=== PATIENT | female | born 1935 | race African-American/Black ===

== ENCOUNTER 2018-05-07 09:03 | Observation (INO) | payer BC ==
[~2018-05-07 09:03] MED LIST: LIDOCAINE 1% PF 2 ML VIAL. ID; MORPHINE SULFATE 2 MG/ML DISP.SYRIN. IV; ONDANSETRON PF 4 MG/2 ML VIAL. IV; PROCHLORPERAZINE 10 MG/2 ML VIAL. IV; fentaNYL PF VIAL 100 MCG/2 ML VIAL IV
[2018-05-07] MEDS ORDERED: LIDOCAINE 2% PF Vial for OR 5 ML VIAL. (09:27)
[2018-05-07] MEDS ORDERED: ROCURONIUM 50 MG/5 ML VIAL. (09:27)
[2018-05-07] MEDS ORDERED: PROPOFOL 20 ML IV (09:27)
[2018-05-07] MEDS ORDERED: ONDANSETRON PF 4 MG/2 ML VIAL. (09:27)
[2018-05-07] MEDS ORDERED: fentaNYL PF VIAL 100 MCG/2 ML VIAL (09:27)
[2018-05-07] MEDS ORDERED: DEXAMETHASONE SOD PHOS 20 MG/5 ML VIAL. (09:27)
[2018-05-07] MEDS: IV RINGERS,LACTATED 1000ML 1,000 ML IV (09:51)
[2018-05-07] MEDS ORDERED: GLYCOPYRROLATE 1 MG/5 ML VIAL. (10:49)
[2018-05-07] MEDS ORDERED: NEOSTIGMINE METHYLSULFATE 5 MG/5 ML SYRINGE. (10:49)
[2018-05-07] MEDS ORDERED: PHENYLEPHRINE in 0.9% NACL PF 1 MG/10 ML SYRINGE. IV (10:58)
[2018-05-07] MEDS ORDERED: ePHEDrine PF IN SALINE 50 MG/5 ML DISP.SYRIN IV (11:31)
[2018-05-07] MEDS ORDERED: SEVOFLURANE 61 TO 120 MINUTES. IH (11:56)
[2018-05-07] MEDS ORDERED: ceFAZolin 2GM PREMIX 2 GM/50 ML BAG IV (12:00)
[2018-05-07] MEDS ORDERED: fentaNYL PF VIAL 100 MCG/2 ML VIAL IV ×2 (12:15→12:30)
[2018-05-07] MEDS ORDERED: 0.9 % SODIUM CHLORIDE 10 ML DISP.SYRIN. IV (12:15)
[2018-05-07] MEDS ORDERED: HYDROcodone/APAP 5/325MG 1 TAB TABLET PO ×2 (12:15)
[2018-05-07] MEDS ORDERED: ONDANSETRON PF 4 MG/2 ML VIAL. IV (12:15)
[2018-05-07] MEDS: fentaNYL PF VIAL 100 MCG/2 ML VIAL IV ×2 (12:47→13:05)
[2018-05-07] MEDS: IV 1/2 NORMAL SALINE 1,000 ML IV (13:50)
[2018-05-07] MEDS: ENOXAPARIN 40 MG/0.4 ML SYRINGE. SQ (21:00)
[2018-05-08] MEDS: IV 1/2 NORMAL SALINE 1,000 ML IV (02:25)
[2018-05-08 05:31] LABS: ANION GAP 7 (6-14); BLOOD UREA NITROGEN 12 mg/dL (7-20); CALCIUM 9.4 mg/dL (8.5-10.1); CARBON DIOXIDE 26 mmol/L (21-32); CHLORIDE 100 mmol/L (98-107); CREATININE 1.1 mg/dL (0.6-1.0); GFR 57.3; GLUCOSE 103 mg/dL (70-99); SODIUM 133 mmol/L (136-145)
== END 2018-05-08 13:00 | disposition home or self-care (01) ==
LOC: SURG 09:03 → 4 NORTH 12:10
DX: K43.2 Incisional hernia without obstruction or gangrene (principal); M06.9 Rheumatoid arthritis, unspecified; I10 Essential (primary) hypertension; E55.9 Vitamin D deficiency, unspecified
CPT/HCPCS: 36415; 80048; A7015; C1781; G0378; G0379; J0690; J1100; J1650; J2370; J2405; J2704; J2710; J3010; J3490; J7120

== ENCOUNTER → 2020-02-11 | Outpatient (CLI) | payer BC ==
[2018-05-08 11:00] VITALS: BP 143/74
[~2020-02-11] MED LIST changes: +CETI10TA24 PO; +HYDR-2761 PO; -LIDOCAINE 1% PF 2 ML VIAL. ID; -MORPHINE SULFATE 2 MG/ML DISP.SYRIN. IV; -ONDANSETRON PF 4 MG/2 ML VIAL. IV; +PERCOGESIC PO; -PROCHLORPERAZINE 10 MG/2 ML VIAL. IV; -fentaNYL PF VIAL 100 MCG/2 ML VIAL IV
--- NOTE | 2020-02-11 14:06 | KCIC ---
INDICATION: Right leg edema COMPARISON: None. TECHNIQUE: Grayscale, color and doppler ultrasound images were obtained of the right lower extremity venous vasculature. RIGHT: No thrombus identified in the common femoral vein, femoral vein, popliteal vein or visualized calf veins. IMPRESSION: * No thrombus identified in deep venous system of right lower extremity. Electronically signed by: Dre Taylor MD (02/11/2020 2:03 PM) [id number]
== END | disposition home or self-care (01) ==
LOC: KCIC US 13:19
PROVIDERS: ATTEND Family Medicine
DX: R60.0 Localized edema (principal)
CPT/HCPCS: 93971

== ENCOUNTER → 2020-11-18 | Outpatient (CLI) | payer BC ==
[2020-03-31 15:00] VITALS: BP 138/71
[~2020-11-18] MED LIST changes: +AMOX1TAB61 PO; +ASCO500T4 PO; -CETI10TA24 PO; +CETI10TA74 PO; +CHOL500051 PO; +ZINC220C2 PO; +[UNRECOGNIZED DRUG - REMARK]
[2020-11-18 14:48] LABS: BASO % 1 % (0-3); EOS # 0.1 x10^3/uL (0.0-0.7); EOS % 5 % (0-3); HEMATOCRIT 32.1 % (36.0-47.0); HEMOGLOBIN 10.6 g/dL (12.0-15.5); LYMPH # 0.7 x10^3/uL (1.0-4.8); LYMPH % 33 % (24-48); MEAN CORPUSCULAR HEMOGLOBIN 29 pg (25-35); MEAN CORPUSCULAR HGB CONC 33 g/dL (31-37); MEAN CORPUSCULAR VOLUME 88 fL (79-100); MONO # 0.2 x10^3/uL (0.0-1.1); MONO % 11 % (0-9); NEUT % 51 % (31-73); PLATELET COUNT 147 x10^3/uL (140-400); RED BLOOD COUNT 3.63 x10^6/uL (3.50-5.40)
[2020-11-19 16:11] LABS: KAPPA FREE 112.1 mg/L (3.3-19.4); KAPPA LAMBDA RATIO 1.64 (0.26-1.65); LAMBDA FREE 68.5 mg/L (5.7-26.3)
[2020-11-19 18:13] LABS: COMMENT IMMUNOFIX SERUM Note: (.); IMMUNOGLOBULIN A 539 mg/dL (64-422); IMMUNOGLOBULIN G 3420 mg/dL (586-1602); IMMUNOGLOBULIN M 52 mg/dL (26-217)
[2020-11-19 19:12] LABS: ALBUM 3.5 g/dL (2.9-4.4); ALPHA 1 0.2 g/dL (0.0-0.4); ALPHA 2 0.5 g/dL (0.4-1.0); GAMMA 3.1 g/dL (0.4-1.8); PROTEIN TOTAL 8.3 g/dL (6.0-8.5); SPEP AG RATIO 0.7 (0.7-1.7)
== END ==
LOC: ONCLAB 13:44
PROVIDERS: ATTEND Internal Medicine Hematology & Oncology
DX: D64.9 Anemia, unspecified (principal)
CPT/HCPCS: 36415; 82607; 82728; 82746; 82784; 83520; 83540; 83550; 84165; 85025; 86334

== ENCOUNTER 2022-04-07 22:57 | Emergency (ER) | payer BC ==
[~2022-04-07] VITALS: Ht 154.9 cm; Wt 45.0 kg
[~2022-04-07 22:57] MED LIST changes: +CHOL5000 PO; -CHOL500051 PO
--- NOTE | 2022-04-07 23:36 | PHYS DOC ---
Past Medical History Past Medical History: Arthritis Past Surgical History: No Surgical History Smoking Status: Never Smoker Alcohol Use: None Drug Use: None General Adult EDM: Chief Complaint: LOWER EXTREMITY SWELLING HPI: HPI: Patient is a 86 year old female who presents with bilateral lower extremity swelling and discoloration. Patient denies daily medications or past medical history apart from arthritis. Patient's goddaughter is at bedside and aids in providing history. Goddaughter reports that over the past year, the patient's legs have been swelling progressively. This week, patient's legs are significantly more swollen and have become darker/discolored. Patient has a superficial wound to the right ankle. Goddaughter also states that the patient "rarely" sees her primary care doctor. Patient denies pain at rest, but did have some left lower leg pain when she stood up earlier today. The pain was resolved after one dose of ibuprofen. Patient denies chest pain, palpitations, shortness of breath, cough. Review of Systems: Review of Systems: Constitutional: Denies fever, chills or generalized weakness Eyes: Denies change in visual acuity, visual field deficits or discharge HENT: Denies ear pain, nasal congestion or sore throat Respiratory: See HPI Cardiovascular: See HPI GI: Denies abdominal pain, nausea, vomiting, bloody stools or diarrhea : Denies dysuria or hematuria Musculoskeletal: See HPI Integument: Denies rash or other skin lesion Neurologic: Denies headache, focal weakness or sensory changes Heart Score: C/O Chest Pain: No Allergies: Allergies: Allergies Coded Allergies Type Severity Reaction Last Updated Verified valdecoxib Allergy Intermediate Unknown 04/07/22 Yes Physical Exam: PE: Constitutional: Well developed, well nourished, no acute distress, non-toxic appearance. HENT: Normocephalic, atraumatic, bilateral external ears normal, oropharynx moist, no oral exudates, nose normal. Eyes: PERRL, EOMI, conjunctiva normal, no discharge. Neck: Normal range of motion, no stridor. Cardiovascular: Heart regular rate and rhythm. Lungs & Thorax: Equal thoracic expansion, no increased work of breathing. Skin: Bilateral lower extremities with darkened, dry/flaky rash consistent with stasis dermatitis, skin in the area is tight and firm, superficial ulceration noted at the lateral malleolus of the left ankle. Skin otherwise warm and dry. Extremities: No tenderness, no cyanosis, no clubbing, ROM intact, bilateral distal lower leg edema extending to mid calf. Neurologic: Alert and oriented x4, normal motor function, normal sensory function, no focal deficits noted. Current Patient Data: Labs: Laboratory Tests Test 04/08/22 00:21 White Blood Count 2.6 x10^3/uL (4.0-11.0) Red Blood Count 2.77 x10^6/uL (3.50-5.40) Hemoglobin 7.4 g/dL (12.0-15.5) Hematocrit 22.6 % (36.0-47.0) Mean Corpuscular Volume 82 fL (79-100) Mean Corpuscular Hemoglobin 27 pg (25-35) Mean Corpuscular Hemoglobin Concent 33 g/dL (31-37) Red Cell Distribution Width 16.6 % (11.5-14.5) Platelet Count 163 x10^3/uL (140-400) Neutrophils (%) (Auto) 60 % (31-73) Lymphocytes (%) (Auto) 22 % (24-48) Monocytes (%) (Auto) 13 % (0-9) Eosinophils (%) (Auto) 4 % (0-3) Basophils (%) (Auto) 1 % (0-3) Neutrophils # (Auto) 1.6 x10^3/uL (1.8-7.7) Lymphocytes # (Auto) 0.6 x10^3/uL (1.0-4.8) Monocytes # (Auto) 0.3 x10^3/uL (0.0-1.1) Eosinophils # (Auto) 0.1 x10^3/uL (0.0-0.7) Basophils # (Auto) 0.0 x10^3/uL (0.0-0.2) Sodium Level 138 mmol/L (136-145) Potassium Level 4.2 mmol/L (3.5-5.1) Chloride Level 106 mmol/L (98-107) Carbon Dioxide Level 27 mmol/L (21-32) Anion Gap 5 (6-14) Blood Urea Nitrogen 12 mg/dL (7-20) Creatinine 1.2 mg/dL (0.6-1.0) Estimated GFR (Cockcroft-Gault) 51.3 BUN/Creatinine Ratio 10 (6-20) Glucose Level 82 mg/dL (70-99) Calcium Level 9.1 mg/dL (8.5-10.1) Magnesium Level 2.2 mg/dL (1.8-2.4) Total Bilirubin 0.3 mg/dL (0.2-1.0) Aspartate Amino Transf (AST/SGOT) 20 U/L (15-37) Alanine Aminotransferase (ALT/SGPT) 10 U/L (14-59) Alkaline Phosphatase 94 U/L (46-116) Troponin I High Sensitivity 11 ng/L (4-50) SQ-Tgj-G-Type Natriuretic Peptide 451 pg/mL (0-449) Total Protein 7.8 g/dL (6.4-8.2) Albumin 2.4 g/dL (3.4-5.0) Albumin/Globulin Ratio 0.4 (1.0-1.7) Vital Signs: Vital Signs Date Time Temp Pulse Resp B/P (MAP) Pulse Ox O2 Delivery O2 Flow Rate FiO2 04/08/22 01:30 73 18 148/76 (100) 96 Room Air 04/08/22 00:34 84 18 165/79 (107) 98 Room Air 04/08/22 00:00 72 16 142/68 (92) 97 Room Air 04/07/22 23:04 97.9 84 18 114/59 (77) 95 Room Air 97.9 EKG: EKG: EKG Interpreted by Dr. Mckinley at 0006: Sinus arrhythmia at 61 bpm with no ectopic beats. SD 182 ms/QT 370 ms/QTc 374 ms. No STEMI. Radiology/Procedures: Radiology/Procedures: PROCEDURE: PORTABLE CHEST 1V AP portable chest radiograph 04/07/2022 Clinical History: Peripheral edema. An AP erect portable digital radiograph of the chest was obtained. The cardiac silhouette is borderline enlarged. The thoracic aorta is tortuous. Calcified right hilar and mediastinal lymph nodes are seen. No acute pulmonary infiltrate is noted. No pneumothorax or pleural effusion is seen. Degenerative changes are seen involving the thoracic spine and both shoulders. Impression: No acute abnormality is seen. Electronically signed by: Ze Reece MD (04/07/2022 11:31 PM) [id number] Course & Med Decision Making: Course & Med Decision Making Pertinent Labs and Imaging studies reviewed. (See chart for details) Patient labs are reassuring and patient does not require any urgent/emergent attention at this time. I spent a significant amount of time at bedside speaking to the patient and her family member. During this conversation, very thorough patient education was given regarding venous stasis dermatitis, peripheral vascular disease and the need for specialty follow-up. I reassured both the patient and her goddaughter that the patient was not in need of any emergent or urgent interventions at this time. The goddaughter expressed that she wanted the patient admitted to have further work-up and evaluation, however I reiterated that inpatient follow-up and treatment is not warranted at this time. I asked multiple times if there was any other reassurance that I could provide to her, but she responded negatively. During this conversation, patient expressed that she was comfortable going home, that her pain had resolved and that she was grateful for contact information for cardiology as well as podiatry. The goddaughter continues to express that she is not satisfied with this treatment plan, though she does understand it. Patient verbalizes understanding and agreement. Patient was discharged home in stable condition. Dragon Disclaimer: Dragon Disclaimer: This electronic medical record was generated, in whole or in part, using a voice recognition dictation system. Departure Departure Impression: Primary Impression: Swelling of both lower extremities Additional Impression: Stasis dermatitis of both legs Disposition: 01 HOME / SELF CARE / HOMELESS Condition: STABLE Referrals: SRINIVAS ELIZALDE MD (PCP) BRUNILDA ALDANA MD, ZHIPENG DPM Patient Instructions: Peripheral Edema Additional Instructions: EMERGENCY DEPARTMENT GENERAL DISCHARGE INSTRUCTIONS Thank you for coming to [facility] Emergency Department (ED) today and trusting us with you care. We trust that you had a positive experience in our Emergency Department. If you wish to speak to the department management, you may call the director at . YOUR FOLLOW UP INSTRUCTIONS ARE FOLLOWS: 1. Follow up with your primary care doctor. If you do not have a primary doctor, please ask for a resource list of physicians or clinics that may be able to assist you with follow up care. 2. The emergency provider has interpreted your imaging studies, if any were ordered. The radiology project management specialist also reviewed them. If there is a change in the findings, you will be notified in 48 hours when at all possible. 3. If a lab test or culture has been done, your results will be reviewed and you will be notified if you need a change in treatment. 4. Follow instructions verbalized to you and refer to the printouts if needed. ADDITIONAL INSTRUCTIONS AND INFORMATION: 1. Your care today has been supervised by a physician who is specially trained in emergency care. Many problems require more than one evaluation for a complete diagnosis and treatment. We recommend that you schedule your follow up appointment as recommended to ensure complete treatment of you illness or injury. If you are unable to obtain follow up care and continue to have a problem, or if your condition worsens, we recommend that you return to the ED. 2. We are not able to safely determine your condition over the phone nor are we able to give sound medical advice over the phone. For these safety reasons, if you call for medical advice we will ask you to come to the ED for further evaluation. 3. If you have any questions regarding these discharge instructions please call the ED at . SAFETY INFORMATION: In the interest of safety, wellness, and injury prevention; we encourage you to wear your seat belt, if you smoke; quite smoking, and we encourage family to use a protective helmet for bicycling and other sporting events that present an increased risk for head injury. IF YOUR SYMPTOMS WORSEN OR NEW SYMPTOMS DEVELOP, OR YOU HAVE CONCERNS ABOUT YOUR CONDITION; OR IF YOUR CONDITION WORSENS WHILE YOU ARE WAITING FOR YOUR FOLLOW UP APPOINTMENT; EITHER CONTACT YOUR PRIMARY CARE DOCTOR, THE PHYSICIAN WHOSE NAME AND NUMBER YOU WERE GIVEN, OR RETURN TO THE ED IMMEDIATELY. ELIE BERNARD April 07, 2022 23:36
[2022-04-08 00:28] LABS: BASO % 1 % (0-3); EOS # 0.1 x10^3/uL (0.0-0.7); EOS % 4 % (0-3); HEMATOCRIT 22.6 % (36.0-47.0); HEMOGLOBIN 7.4 g/dL (12.0-15.5); LYMPH # 0.6 x10^3/uL (1.0-4.8); LYMPH % 22 % (24-48); MEAN CORPUSCULAR HEMOGLOBIN 27 pg (25-35); MEAN CORPUSCULAR HGB CONC 33 g/dL (31-37); MEAN CORPUSCULAR VOLUME 82 fL (79-100); MONO # 0.3 x10^3/uL (0.0-1.1); MONO % 13 % (0-9); NEUT # 1.6 x10^3/uL (1.8-7.7); NEUT % 60 % (31-73); PLATELET COUNT 163 x10^3/uL (140-400); RED BLOOD COUNT 2.77 x10^6/uL (3.50-5.40); RED CELL DISTRIBUTION WIDTH 16.6 % (11.5-14.5); WHITE BLOOD COUNT 2.6 x10^3/uL (4.0-11.0)
[2022-04-08 00:39] LABS: CALCIUM 9.1 mg/dL (8.5-10.1); CREATININE 1.2 mg/dL (0.6-1.0); GFR 51.3; POTASSIUM 4.2 mmol/L (3.5-5.1)
[2022-04-08 00:47] LABS: ALBUMIN 2.4 g/dL (3.4-5.0); ALBUMIN/GLOBULIN RATIO 0.4 (1.0-1.7); MAGNESIUM 2.2 mg/dL (1.8-2.4); TOTAL BILIRUBIN 0.3 mg/dL (0.2-1.0); TOTAL PROTEIN 7.8 g/dL (6.4-8.2)
[2022-04-08 01:20] LABS: BACTERIA,URINE 0 /HPF (0-FEW); RBC,URINE RARE /HPF (0-2)
[2022-04-08 01:30] VITALS: BP 148/76
--- NOTE | 2022-04-09 06:10 | EKG ---
[facility] [address] [place] [address] Test Date: 2022-04-08 Test Time: 00:06:14 Pat Name: CHARLY PARIS Department: Room: Gender: F Home Specialist: : [id number] Requested By: ELIE BERNARD Order Number: [id number] Reading MD: Crispin Cuellar Measurements Intervals [place] Rate: 61 P: 57 OK: 182 QRS: -33 QRSD: 76 T: 3 QT: 370 QTc: 374 Interpretive Statements SINUS RHYTHM ABNORMAL LEFT AXIS DEVIATION LEFT ANTERIOR FASCICULAR BLOCK QRS(T) CONTOUR ABNORMALITY CONSISTENT WITH ANTERIOR INFARCT AGE UNDETERMINED ABNORMAL ECG RI6.01 No previous ECG available for comparison Electronically Signed On 04-11-2022 10:16:08 CDT by Crispin Cuellar
== END 2022-04-08 02:12 | disposition home or self-care (01) ==
LOC: ER 22:57
DX: I87.2 Venous insufficiency (chronic) (peripheral) (principal); Z88.8 Allergy status to other drugs, medicaments and biological substances
CPT/HCPCS: 36415; 71045; 80053; 81001; 83735; 83880; 84484; 85025; 87086; 93005; 99285-25